=== PATIENT | male | born 1995 | race Caucasian/White ===

== ENCOUNTER 2018-12-21 22:15 | Emergency (ER) | payer OTHER ==
--- NOTE | 2018-12-21 22:31 | EDPHY ---
H & P Stated Complaint: left wrist injury Time Seen by Provider: 12/21/18 22:31 HPI/ROS: HPI CHIEF COMPLAINT: left wrist pain. HISTORY OF PRESENT ILLNESS: A 23-year-old male, otherwise healthy without, any significant medical history presents emergency room left wrist pain. His pain is located ulnar side distal aspect. Was playing soccer and he fell on outstretched left hand. Pain is located left lateral wrist. He is neurovascularly intact no significant swelling. Closed injury. Past Medical History: Denies significant medical history Past Surgical History: Multiple orthopedic surgeries including right clavicle, left elbow: Left forearm. Social History: Denies drugs, tobacco. Daily alcohol. Family History: Noncontributory ROS REVIEW OF SYSTEMS: 10 Systems were reviewed and negative with the exception of the elements mentioned in the history of present illness. Exam Constitutional triage nursing summary reviewed, vital signs reviewed, awake/ alert. Eyes normal conjunctivae and sclera, EOMI, PERRLA. HENT normal inspection, atraumatic, moist mucus membranes, no epistaxis, neck supple/ no meningismus, no raccoon eyes. Respiratory clear to auscultation bilaterally, normal breath sounds, no respiratory distress, no wheezing. Cardiovascular rate normal, regular rhythm, no murmur, no edema, distal pulses normal. Gastrointestinal soft, non-tender, no rebound, no guarding, normal bowel sounds, no distension, no pulsatile mass. Genitourinary no CVA tenderness. Musculoskeletal left wrist: Mild tender palpation left lateral wrist distal ulnar aspect. Good radial pulse, good cap refill, good brand specialist strength, no significant swelling no crepitus. His left hand left arm is neurovascularly intact. Sensation intact. No compartment syndrome. no midline vertebral tenderness, full range of motion, no calf swelling, no tenderness of extremities, no meningismus, good pulses, neurovascularly intact. Skin pink, warm, & dry, no rash, skin atraumatic. Neurologic awake, alert and oriented x 3, AAOx3, moves all 4 extremities equally, motor intact, sensory intact, CN II-XII intact, normal cerebellar, normal vision, normal speech. Psychiatric normal mood/affect. Heme/Lymph/Immune no lymphadenopathy. Differential Diagnosis: Includes but is not limited to in a particular order left wrist sprain, left wrist contusion, left wrist fracture, dislocation Medical Decision Making: Plan for this patient x-ray left wrist, ice pack, ibuprofen. And re-evaluate Re-evaluation: X-ray shows a triquetrum fracture. Patient be splinted in a sugar-tong splint. Patient understands follow up with Orthopedics. Patient splinted in a sugar-tong splint. He feels appropriate in this he is neurovascularly intact post splint placement with good cap refill, sensation intact. No significant pain X-ray reviewed with him. Shows a triquetrum fracture Patient understands he needs to follow up with Orthopedics about this. Return precautions discussed he understands return emergency room if develops worsening pain numbness tingling compartment syndrome precautions discussed. Questions or concerns. Source: Patient - Personal History Current Tetanus/Diphtheria Vaccine: Unsure Current Tetanus Diphtheria and Acellular Pertussis (TDAP): Unsure - Medical/Surgical History Hx Asthma: No Hx Chronic Respiratory Disease: No Hx Diabetes: No Hx Cardiac Disease: No Hx Renal Disease: No Hx Cirrhosis: No Hx Alcoholism: No Hx HIV/AIDS: No Hx Splenectomy or Spleen Trauma: No Other PMH: fx left arm 3x, left elbow, right c-collar bone - Social History Smoking Status: Never smoked Constitutional: Initial Vital Signs Temperature (C) 37.2 C 12/21/18 22:16 Heart Rate 92 12/21/18 22:16 Respiratory Rate 16 12/21/18 22:16 Blood Pressure 130/78 H 12/21/18 22:16 O2 Sat (%) 94 12/21/18 22:16 O2 Delivery Mode Room Air Allergies/Adverse Reactions: No Known Allergies Allergy (Unverified 12/21/18 22:19) Home Medications: Medication Instructions Recorded NK [No Known Home Meds] 12/21/18 Medical Decision Making - Diagnostics Imaging Results: Imaging Impressions Wrist X-Ray 12/21/18 22:22 Impression: Mildly displaced triquetral fracture. Departure - Departure Disposition: Home, Routine, Self-Care Clinical Impression: Left wrist sprain, Wrist fracture Condition: Good Instructions: Wrist Fracture in Adults (ED), Wrist Sprain (ED) Additional Instructions: 1. Ice. 2. Anti-inflammatory pain medicine. 3. Please follow up with orthopaedic surgery. 4. You have a small wrist bone fracture triquetrum fracture. You need to follow up with Orthopedics Referrals: NONE *PRIMARY CARE P,. [Primary Care Provider] - As per Instructions Roberto Carlos Otto MD [Medical Doctor] - As per Instructions
[2018-12-22 00:04] VITALS: BP 134/73
== END 2018-12-22 00:02 | disposition home or self-care (01) ==
PROC: 2W3DX1Z Immobilization of Left Lower Arm using Splint (ICD-10-PCS; principal; 2018-12-21)
DX: S62.112A Displaced fracture of triquetrum [cuneiform] bone, left wrist, initial encounter for closed fracture (principal); S63.502A Unspecified sprain of left wrist, initial encounter; W19.XXXA Unspecified fall, initial encounter; Y92.9 Unspecified place or not applicable; Y93.66 Activity, soccer
CPT/HCPCS: A4565